=== PATIENT | male | born 1980 | race Caucasian/White ===

== ENCOUNTER 2023-04-10 12:15 | Emergency (ER) | payer OTHER ==
[2023-04-10 12:50] VITALS: TEMP 97
--- NOTE | 2023-04-10 13:30 | XRAY ---
Indication: Head laceration following injury. Multiple contiguous axial images obtained through the head without contrast. Comparison: None Normal appearing brain parenchyma, ventricles, and bony calvarium for patient's age. Visualized paranasal sinuses and mastoid air cells are clear. Impression: Normal CT head without contrast exam.
[2023-04-10 13:39] VITALS: BP 133/79; RESP 18
[2023-04-10] MEDS ORDERED: EMLA Cream 5 GM TP ONE (14:48)
[2023-04-10] MEDS ORDERED: Hydromorphone 1 mg/ml Injection ONE (14:49)
[2023-04-10] MEDS: Hydromorphone 1 mg/ml Injection IM ONE (14:50)
[2023-04-10] MEDS: EMLA Cream 5 GM TP ONE (14:50)
--- NOTE | 2023-04-10 14:54 | ERPHSYRPT ---
- History of Present Illness Source: patient, other (Mother) Exam Limitations: no limitations Patient Subjective Stated Complaint: PT HERE FOR A LACERATION TO TOP OF HEAD TODAY AFTER HITING IT ON TRUCK WHILE WORKING ON IT Triage Nursing Assessment: PT ALERT, RESP EASY, WAKED IN, SKIN W/D/P. HAS 6 CM LACEARTION TOP OF HEAD. NO LOC Physician History: Patient is a 42-year-old male with a 6 cm scalp laceration after hitting his head while working on a friend's truck. He denies any LOC, but he states that he was dazed and has a severe headache. Patient denies any other injuries at this time, including cervical pain. Tetanus is up-to-date. Occurred: just prior to arrival Severity: moderate Head Injury Location: parietal (Posterior parietal) Method of Injury: direct blow Loss of Consciousness: no loss of consciousness, dazed Associated Symptoms: denies symptoms Allergies/Adverse Reactions: Sulfa (Sulfonamide Antibiotics) Allergy (Verified 04/10/23 12:43) Home Medications: Buprenorphine HCl/Naloxone HCl [Buprenorphine-Nalox 8-2 mg Tab] 1 ea DAILY 04/10/23 [History] Hx Tetanus, Diphtheria Vaccination/Date Given: Yes (2 YEARS) Hx Influenza Vaccination/Date Given: No Hx Pneumococcal Vaccination/Date Given: No Immunizations Up to Date: Yes Travel Risk - International Travel Have you traveled outside of the country in past 3 weeks: No - Coronavirus Screening Are you exhibiting any of the following symptoms?: No Close contact with a COVID-19 positive Pt in past 14-21 Days: No - Vaccine Status Have you recieved a Covid-19 vaccination: No - Review of Systems Constitutional: No Symptoms Eyes: No Symptoms Ears, Nose, & Throat: No Symptoms Respiratory: No Symptoms Cardiac: No Symptoms Abdominal/Gastrointestinal: No Symptoms Genitourinary Symptoms: No Symptoms Musculoskeletal: No Symptoms Skin: No Symptoms Neurological: Headache Psychological: No Symptoms Endocrine: No Symptoms Hematologic/Lymphatic: No Symptoms Immunological/Allergic: No Symptoms - Past Medical History Pertinent Past Medical History: No - Past Surgical History Past Surgical History: Yes Musculoskeletal: Orthopedic Surgery - Social History Smoking Status: Former smoker Exposure to second hand smoke: No Drug Use: none Patient Lives Alone: Yes - Nursing Vital Signs Nursing Vital Signs: Initial Vital Signs Temperature 97.0 F 04/10/23 12:49 Pulse Rate 99 H 04/10/23 12:49 Respiratory Rate 20 04/10/23 12:49 Blood Pressure 115/71 04/10/23 12:49 O2 Sat by Pulse Oximetry 98 04/10/23 12:49 Pain Scale Pain Intensity 7 Vital signs within normal limits - Danelle Coma Score Best Eye Response ([place]): (4) open spontaneously Best Verbal Response ([place]): (5) oriented Best Motor Response ([place]): (6) obeys commands Danelle Total: 15 - Physical Exam General Appearance: no apparent distress Head Injury: lacerations (6 cm occiput laceration with good hemostasis.) Eye Exam: bilateral eye: normal inspection, PERRL, EOMI ENT Exam: airway nml (No otorrhea or rhinorrhea noted) Neck Exam: supple (C-spine nontender to palpation) Cardiovascular/Respiratory Exam: chest non-tender (No thoracic tenderness to palpation/lungs clear to to auscultation bilaterally/heart regular rate rhythm without heaves gallops murmurs or rubs) Gastrointestinal/Abdominal Exam: soft (Abdomen soft, good bowel sounds all 4 quadrants, and nontender to palpation.) Back Exam: normal inspection (No T or L-spine tenderness palpation) Extremity Exam: non-tender (No upper or lower extremity tenderness palpation or deformity noted) Mental Status Exam: alert, oriented x 3, 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 Exam: normal hearing, normal speech, PERRL, No abnormal eye position, No abnormal gag reflex Coordination/Gait Exam: normal finger to nose, normal cerebellar function Motor/Sensory Exam: no motor deficit, no sensory deficit, no pronator drift DTR Exam: bicep (R): 2+, bicep (L): 2+ Skin Exam: normal color, warm, dry, No rash Lymphatic Exam: No adenopathy SpO2 Interpretation: normal SpO2: 96 Procedures - Laceration/Wound Repair Parietal Wound Location: head Wound Length (cm): 6 Wound's Depth, Shape: linear Wound Explored: contaminated Irrigated: Yes Hibiclens Prep: Yes Anesthesia: topical Wound Repaired With: Dima (X3) - Course Nursing assessment & vital signs reviewed: Yes - CT Exams Head CT Interpretation: Discussed w/radiologist (CT head negative productively) Ordered Tests: Active Orders 24 hr Category Date Time Status HEAD WITHOUT CONTRAST [CT] Stat Exams 04/10/23 12:54 Completed Medication Summary Discontinued Medications Generic Name Dose Route Start Last Admin Trade Name John PRN Reason Stop Dose Admin Bacitracin Zinc 0.9 each 04/10/23 15:46 04/10/23 15:46 Bacitracin Packet 1 Each Pckt TP 04/10/23 15:47 0.9 each STAT ONE Administration Bacitracin Zinc Confirm 04/10/23 15:46 Bacitracin Packet 1 Each Pckt Administered 04/10/23 15:47 Dose 1 each .ROUTE .STK-MED ONE Hydromorphone HCl 0.5 mg 04/10/23 14:48 04/10/23 14:50 Hydromorphone 1 Mg/1ml Inj IM 04/10/23 14:49 0.5 mg ONCE ONE Administration Hydromorphone HCl Confirm 04/10/23 14:49 Hydromorphone 1 Mg/1ml Inj Administered 04/10/23 14:50 Dose 1 mg .ROUTE .STK-MED ONE Lidocaine/Prilocaine 2.5 gm 04/10/23 14:48 04/10/23 14:50 Lidocaine/Prilocaine 5 Gm 5 Gm Tube TP 04/10/23 14:49 2.5 gm STAT ONE Administration Lidocaine/Prilocaine Confirm 04/10/23 14:48 Lidocaine/Prilocaine 5 Gm 5 Gm Tube Administered 04/10/23 14:49 Dose 5 gm TP .STK-MED ONE - Progress Progress: improved, pain not gone completely Progress Note: 04/10/23 17:37 Nursing note and vital signs reviewed. No food or housing insecurities noted. CT result reviewed and shared with patient. Patient is up-to-date on his Tdap. Before repairing scalp laceration, patient given 0.5 IM Dilaudid and Emla cream applied to the laceration. After Emla cream removed, laceration thoroughly cleaned with Hibiclens per nursing. 3 dima applied to 6 cm scalp laceration per ER physician. Patient did not tolerate procedure well and stopped the procedure after 3 dima. Before the procedure, patient agreed to repair without lidocaine because the pain from the injection is worse than quick staple repair. Laceration appears to be adequately closed with the 3 dima at this time. Laceration dressed per nursing. 04/10/23 17:41 Patient appears to be on Suboxone at this time, so advised to use Motrin or Tylenol for pain. Serial neuro exams negative during patient stay. 04/10/23 17:46 Counseled pt/family regarding: diagnosis, need for follow-up, rad results Medical Desision Making - Diagnostic Testing Radiological Interpretation: Reviewed by me - Risk of complications Low Risk: Low risk of morbidity from additional dx testing or treatment - Departure Departure Disposition: Home Clinical Impression: Scalp laceration, Minor closed head injury Condition: Stable Critical Care Time: No Referrals: BRIAN STEINER [Primary Care Provider] - Follow up/PCP as directed Instructions: Laceration Repair With Dima (DC), Minor Head Injury (DC) Additional Instructions: Keep laceration dry for 4 days, then okay to wash 1-2 times a day with mild soap and water. [place] out in 10 days. Watch for signs of infection-increasing pain, increasing redness, any pus, or temperature greater 100.5. Motrin Tylenol for pain. Return to ER for increasing pain, focal weakness, or temperature greater 100.5.
[2023-04-10] MEDS: BACIGUENT PACKET TP ONE (15:46)
[2023-04-10] MEDS ORDERED: BACIGUENT PACKET ONE (15:46)
[2023-04-10 15:50] VITALS: PULSE 84
[2023-04-10 15:51] VITALS: O2SAT 96
== END 2023-04-10 15:55 | disposition home or self-care (01) ==
LOC: ED 12:15
DX: S01.01XA Laceration without foreign body of scalp, initial encounter (principal); S09.90XA Unspecified injury of head, initial encounter; W22.09XA Striking against other stationary object, initial encounter; Z79.891 Long term (current) use of opiate analgesic; Z28.310 Unvaccinated for COVID-19
CPT/HCPCS: 12002; 70450; 96372; 99283; J1170; A9270-GY

== ENCOUNTER 2023-05-02 14:23 | Emergency (ER) | payer OTHER | END 2023-05-02 15:37 | disposition left against medical advice (07) | LOC: ED 14:23 | DX: Z53.21 Procedure and treatment not carried out due to patient leaving prior to being seen by health care provider (principal) | CPT/HCPCS: 99281 ==